=== PATIENT | male | born 1940 | race Caucasian/White ===

== ENCOUNTER 2016-07-29 07:43 | Outpatient (CLI) | payer MEDICARE, BC | END 2016-07-29 07:44 | disposition home or self-care (01) | LOC: LAB.F 07:43 | PROVIDERS: ATTEND Internal Medicine Cardiovascular Disease | DX: I48.0 Paroxysmal atrial fibrillation (principal) | CPT/HCPCS: 85610 ==

== ENCOUNTER 2016-08-31 08:33 | Outpatient (CLI) | payer MEDICARE, BC | END 2016-08-31 08:34 | disposition home or self-care (01) | LOC: LAB.F 08:33 | PROVIDERS: ATTEND Internal Medicine Cardiovascular Disease | DX: I48.0 Paroxysmal atrial fibrillation (principal) | CPT/HCPCS: 85610 ==

== ENCOUNTER 2016-09-21 09:00 | Outpatient (CLI) | payer MEDICARE, BC | END 2016-09-21 09:01 | disposition home or self-care (01) | LOC: LAB.F 09:00 | PROVIDERS: ATTEND Internal Medicine Cardiovascular Disease | DX: I48.0 Paroxysmal atrial fibrillation (principal) | CPT/HCPCS: 85610 ==

== ENCOUNTER 2016-09-28 08:17 | Outpatient (CLI) | payer MEDICARE, BC | END 2016-09-28 08:18 | disposition home or self-care (01) | LOC: LAB.F 08:17 | PROVIDERS: ATTEND Internal Medicine Cardiovascular Disease | DX: I48.0 Paroxysmal atrial fibrillation (principal) | CPT/HCPCS: 85610 ==

== ENCOUNTER 2016-10-20 09:00 | Outpatient (CLI) | payer MEDICARE, BC | END 2016-10-20 09:01 | disposition home or self-care (01) | LOC: LAB.F 09:00 | PROVIDERS: ATTEND Internal Medicine Cardiovascular Disease | DX: I48.0 Paroxysmal atrial fibrillation (principal) | CPT/HCPCS: 85610 ==

== ENCOUNTER 2016-11-20 08:41 | Outpatient (CLI) | payer MEDICARE, BC | END 2016-11-20 08:42 | disposition home or self-care (01) | LOC: LAB.F 08:41 | PROVIDERS: ATTEND Internal Medicine Cardiovascular Disease | DX: I48.0 Paroxysmal atrial fibrillation (principal) | CPT/HCPCS: 85610 ==

== ENCOUNTER 2016-12-01 07:12 | Outpatient (CLI) | payer MEDICARE, BC | END 2016-12-01 07:13 | disposition home or self-care (01) | LOC: LAB.F 07:12 | PROVIDERS: ATTEND Internal Medicine Cardiovascular Disease | DX: I48.0 Paroxysmal atrial fibrillation (principal) | CPT/HCPCS: 85610 ==

== ENCOUNTER 2017-02-22 09:26 | Outpatient (CLI) | payer MEDICARE, BC | END 2017-02-22 09:27 | disposition home or self-care (01) | LOC: LAB.F 09:26 | PROVIDERS: ATTEND Internal Medicine Cardiovascular Disease | DX: Z79.01 Long term (current) use of anticoagulants (principal) | CPT/HCPCS: 85610 ==

== ENCOUNTER 2017-03-10 10:00 | Outpatient (CLI) | payer MEDICARE, BC | END 2017-03-10 10:01 | disposition home or self-care (01) | LOC: LAB.F 10:00 | PROVIDERS: ATTEND Internal Medicine Cardiovascular Disease | DX: I48.0 Paroxysmal atrial fibrillation (principal); Z79.01 Long term (current) use of anticoagulants | CPT/HCPCS: 85610 ==

== ENCOUNTER 2017-08-04 09:26 | Outpatient (CLI) | payer MEDICARE, BC | END 2017-08-04 09:27 | disposition home or self-care (01) | LOC: LAB.F 09:26 | PROVIDERS: ATTEND Internal Medicine Cardiovascular Disease | DX: Z79.01 Long term (current) use of anticoagulants (principal) | CPT/HCPCS: 85610 ==

== ENCOUNTER 2017-08-31 11:40 | Outpatient (CLI) | payer MEDICARE, BC ==
--- NOTE | 2017-09-01 14:36 | XRAY Report ---
Procedure Date: 08/31/2017 Accession Number: [id number] / [id number] Procedure: XRS - Hip w/Pelvis 2-3V LT CPT Code: FULL RESULT: EXAM: LEFT HIP AND PELVIS RADIOGRAPHY EXAM DATE: 08/31/2017 11:51 AM. HISTORY: PAIN IN LEFT HIP. COMPARISONS: None. TECHNIQUE: 1 view of the pelvis and 1 view of the hip. FINDINGS: Bones: Mild osteopenia. No acute fracture lines. No focal abnormal osseous lesions. Joints: The bilateral hip, pubis symphysis, and sacroiliac joints are normal in alignment. Moderate left and mild right hip joint space narrowing with subchondral sclerosis and osteophytes.. Soft Tissues: Normal. No soft tissue swelling. IMPRESSION: 1. Osteopenia without evidence for acute fracture or dislocation of the pelvis or hip. 2. 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 RADIA
== END 2017-08-31 11:41 | disposition home or self-care (01) ==
LOC: DI.S 11:40
PROVIDERS: ATTEND Internal Medicine
DX: M85.89 Other specified disorders of bone density and structure, multiple sites (principal); M16.0 Bilateral primary osteoarthritis of hip

== ENCOUNTER 2017-09-07 11:09 | Outpatient (CLI) | payer MEDICARE, BC | END 2017-09-07 11:10 | disposition home or self-care (01) | LOC: LAB.F 11:09 | PROVIDERS: ATTEND Internal Medicine Cardiovascular Disease | DX: I48.0 Paroxysmal atrial fibrillation (principal) | CPT/HCPCS: 85610 ==

== ENCOUNTER 2017-10-01 08:50 | Outpatient (CLI) | payer MEDICARE, BC | END 2017-10-01 08:51 | disposition home or self-care (01) | LOC: LAB.F 08:50 | PROVIDERS: ATTEND Internal Medicine Cardiovascular Disease | DX: I48.0 Paroxysmal atrial fibrillation (principal) | CPT/HCPCS: 85610 ==

== ENCOUNTER 2017-11-01 08:19 | Outpatient (CLI) | payer MEDICARE, BC | END 2017-11-01 08:20 | disposition home or self-care (01) | LOC: LAB.F 08:19 | PROVIDERS: ATTEND Internal Medicine Cardiovascular Disease | DX: I48.0 Paroxysmal atrial fibrillation (principal) | CPT/HCPCS: 85610 ==

== ENCOUNTER 2017-11-16 09:02 | Outpatient (CLI) | payer MEDICARE, BC | END 2017-11-16 09:03 | disposition home or self-care (01) | LOC: LAB.F 09:02 | PROVIDERS: ATTEND Internal Medicine Cardiovascular Disease | DX: I48.0 Paroxysmal atrial fibrillation (principal) | CPT/HCPCS: 85610 ==

== ENCOUNTER 2018-02-17 10:15 | Outpatient (CLI) | payer MEDICARE, BC ==
[2018-02-17 17:37] LABS: INR 2.6 (0.8-1.2)
== END 2018-02-17 10:16 | disposition home or self-care (01) ==
LOC: LAB.F 10:15
PROVIDERS: ATTEND Internal Medicine Cardiovascular Disease
DX: I48.0 Paroxysmal atrial fibrillation (principal)
CPT/HCPCS: 36415; 85610

== ENCOUNTER 2018-08-09 08:14 | Outpatient (CLI) | payer MEDICARE, BC | END 2018-08-09 08:15 | disposition home or self-care (01) | LOC: LAB.F 08:14 | PROVIDERS: ATTEND Internal Medicine Cardiovascular Disease | DX: I48.0 Paroxysmal atrial fibrillation (principal) | CPT/HCPCS: 85610 ==

== ENCOUNTER 2018-09-12 08:54 | Outpatient (CLI) | payer MEDICARE, BC | END 2018-09-12 08:55 | disposition home or self-care (01) | LOC: LAB.S 08:54 | PROVIDERS: ATTEND Internal Medicine Cardiovascular Disease | DX: I48.0 Paroxysmal atrial fibrillation (principal) | CPT/HCPCS: 85610 ==

== ENCOUNTER 2018-10-13 09:49 | Outpatient (CLI) | payer MEDICARE, BC | END 2018-10-13 09:50 | disposition home or self-care (01) | LOC: LAB.S 09:49 | PROVIDERS: ATTEND Internal Medicine Cardiovascular Disease | DX: I48.0 Paroxysmal atrial fibrillation (principal) | CPT/HCPCS: 85610 ==

== ENCOUNTER 2018-11-03 09:42 | Outpatient (CLI) | payer MEDICARE, BC | END 2018-11-03 09:43 | disposition home or self-care (01) | LOC: LAB.S 09:42 | PROVIDERS: ATTEND Internal Medicine Cardiovascular Disease | DX: I48.0 Paroxysmal atrial fibrillation (principal) | CPT/HCPCS: 85610 ==

== ENCOUNTER 2018-12-01 11:17 | Outpatient (CLI) | payer MEDICARE, BC | END 2018-12-01 11:18 | disposition home or self-care (01) | LOC: LAB.S 11:17 | PROVIDERS: ATTEND Internal Medicine Cardiovascular Disease | DX: I48.0 Paroxysmal atrial fibrillation (principal) | CPT/HCPCS: 85610 ==

== ENCOUNTER 2019-08-15 10:16 | Outpatient (CLI) | payer MEDICARE, BC | END 2019-08-15 10:17 | disposition home or self-care (01) | LOC: LAB.S 10:16 | PROVIDERS: ATTEND Internal Medicine Cardiovascular Disease | DX: I48.11 Longstanding persistent atrial fibrillation (principal) | CPT/HCPCS: 85610 ==

== ENCOUNTER 2019-09-12 09:48 | Outpatient (CLI) | payer MEDICARE, BC | END 2019-09-12 09:49 | disposition home or self-care (01) | LOC: LAB.S 09:48 | PROVIDERS: ATTEND Internal Medicine Cardiovascular Disease | DX: I48.0 Paroxysmal atrial fibrillation (principal) | CPT/HCPCS: 85610 ==

== ENCOUNTER 2019-10-24 10:43 | Outpatient (CLI) | payer MEDICARE, BC | END 2019-10-24 10:44 | disposition home or self-care (01) | LOC: LAB.S 10:43 | PROVIDERS: ATTEND Internal Medicine Cardiovascular Disease | DX: I48.0 Paroxysmal atrial fibrillation (principal) | CPT/HCPCS: 85610 ==

== ENCOUNTER 2019-11-07 10:10 | Outpatient (CLI) | payer MEDICARE, BC | END 2019-11-07 10:11 | disposition home or self-care (01) | LOC: LAB.S 10:10 | PROVIDERS: ATTEND Internal Medicine Cardiovascular Disease | DX: I48.0 Paroxysmal atrial fibrillation (principal) | CPT/HCPCS: 85610 ==

== ENCOUNTER 2020-08-09 09:10 | Outpatient (CLI) | payer MEDICARE, BC | END 2020-08-09 09:11 | disposition home or self-care (01) | LOC: LAB.S 09:10 | PROVIDERS: ATTEND Internal Medicine Cardiovascular Disease | DX: I48.11 Longstanding persistent atrial fibrillation (principal) | CPT/HCPCS: 36416; 85610 ==

== ENCOUNTER 2020-09-11 11:49 | Outpatient (CLI) | payer MEDICARE, BC ==
[2020-09-11 14:39] LABS: BASOPHILS # (AUTO) 0.1 10^3/uL (0.0-0.1); BASOPHILS % (AUTO) 1.2 %; EOSINOPHILS # (AUTO) 0.6 10^3/uL (0.0-0.7); EOSINOPHILS % (AUTO) 10.6 %; HCT - HEMATOCRIT 46.2 % (42.0-52.0); HGB - HEMOGLOBIN 15.9 g/dL (14.0-18.0); LYMPHOCYTES # (AUTO) 1.1 10^3/uL (1.5-3.5); LYMPHOCYTES % (AUTO) 21.5 %; MEAN CORPUSCULAR HEMOGLOBIN 33.3 pg (27.0-31.0); MEAN CORPUSCULAR HGB CONC 34.4 g/dL (32.0-36.0); MEAN CORPUSCULAR VOLUME 96.9 fL (80.0-94.0); MEAN PLATELET VOLUME 9.8 fL (7.4-11.4); MONOCYTES # (AUTO) 0.7 10^3/uL (0.0-1.0); NEUTROPHILS # (AUTO) 2.8 10^3/uL (1.5-6.6); NEUTROPHILS % (AUTO) 53.5 %; PLT - PLATELET COUNT 211 10^3/uL (130-450); RED BLOOD COUNT 4.77 10^6/uL (4.70-6.10); RED CELL DISTRIBUTION WIDTH 12.8 % (12.0-15.0); WHITE BLOOD COUNT 5.2 x10^3/uL (4.8-10.8)
[2020-09-11 15:13] LABS: ALBUMIN/GLOBULIN RATIO 1.3 (1.0-2.2); BILIRUBIN,TOTAL 1.1 mg/dL (0.2-1.0); CALCIUM 9.1 mg/dL (8.5-10.3); CREATININE 1.2 mg/dL (0.6-1.2); POTASSIUM 4.1 mmol/L (3.5-5.0)
--- NOTE | 2020-09-11 17:33 | XRAY Report ---
PROCEDURE: Chest 2 View X-Ray INDICATIONS: COUGH TECHNIQUE: 2 view(s) of the chest. COMPARISON: None. FINDINGS: Surgical changes and devices: None. Lungs and pleura: No pleural effusions or pneumothorax. Lungs are clear. Mediastinum: Mediastinal contours are normal. Heart size is normal. Bones and chest wall: No suspicious bony abnormalities. Thoracic spine degenerative disc changes. So ft tissues appear unremarkable. IMPRESSION: No acute cardiopulmonary disease process. Reviewed by: Hannah Rivera MD, PhD on 09/11/2020 5:31 PM PDT Approved by: Hannah Rivera MD, PhD on 09/11/2020 5:31 PM PDT Station ID: [id number]
--- NOTE | 2020-09-11 17:34 | XRAY Report ---
PROCEDURE: Thoracic Spine 2 View INDICATIONS: THORACIC SPINE PX TECHNIQUE: 3 views of the thoracic spine were acquired. COMPARISON: None. FINDINGS: Bones: Loss of height noted in the T10, T9 and T7 vertebral bodies compatible with compression fractu res of indeterminate age. No suspicious bony lesions. 12 pairs of ribs are noted, and appear intact where visualized. Moderate degenerative disc changes noted throughout the thoracic spine. Soft tissues: No paravertebral stripe thickening. IMPRESSION: 1. T7, T9 and T10 compression fractures of indeterminate age. Recommend MRI of the thoracic spine for definitive characterization if clinically indicated. 2. Multilevel degenerative disc disease. Reviewed by: Hannah Rivera MD, PhD on 09/11/2020 5:33 PM PDT Approved by: Hannah Rivera MD, PhD on 09/11/2020 5:33 PM PDT Station ID: [id number]
== END 2020-09-11 11:50 | disposition home or self-care (01) ==
LOC: DI.S 11:49
PROVIDERS: ATTEND Internal Medicine
DX: M51.34 Other intervertebral disc degeneration, thoracic region (principal); M48.54XA Collapsed vertebra, not elsewhere classified, thoracic region, initial encounter for fracture; R05 Cough; I48.11 Longstanding persistent atrial fibrillation; Z79.899 Other long term (current) drug therapy
CPT/HCPCS: 36415; 80053; 85025; 85610

== ENCOUNTER 2020-10-09 08:50 | Outpatient (CLI) | payer MEDICARE, BC | END 2020-10-09 08:51 | disposition home or self-care (01) | LOC: LAB.S 08:50 | PROVIDERS: ATTEND Internal Medicine Cardiovascular Disease | DX: I48.11 Longstanding persistent atrial fibrillation (principal) | CPT/HCPCS: 36416; 85610 ==

== ENCOUNTER 2020-11-06 09:46 | Outpatient (CLI) | payer MEDICARE, BC | END 2020-11-06 09:47 | disposition home or self-care (01) | LOC: LAB.S 09:46 | PROVIDERS: ATTEND Internal Medicine Cardiovascular Disease | DX: I48.11 Longstanding persistent atrial fibrillation (principal) | CPT/HCPCS: 36416; 85610 ==

== ENCOUNTER 2020-12-09 10:19 | Outpatient (CLI) | payer MEDICARE, BC | END 2020-12-09 10:20 | disposition home or self-care (01) | LOC: LAB.S 10:19 | PROVIDERS: ATTEND Internal Medicine Cardiovascular Disease | DX: I48.11 Longstanding persistent atrial fibrillation (principal) | CPT/HCPCS: 36416; 85610 ==

== ENCOUNTER 2021-07-28 09:16 | Outpatient (CLI) | payer MEDICARE, BC | END 2021-07-28 09:17 | disposition home or self-care (01) | LOC: LAB.S 09:16 | PROVIDERS: ATTEND Internal Medicine Cardiovascular Disease | DX: I48.11 Longstanding persistent atrial fibrillation (principal) | CPT/HCPCS: 36416; 85610 ==

== ENCOUNTER 2021-09-08 14:34 | Outpatient (CLI) | payer MEDICARE, BC | END 2021-09-08 14:35 | disposition home or self-care (01) | LOC: LAB.S 14:34 | PROVIDERS: ATTEND Internal Medicine Cardiovascular Disease | DX: I48.11 Longstanding persistent atrial fibrillation (principal) | CPT/HCPCS: 36416; 85610 ==

== ENCOUNTER 2021-10-07 09:50 | Outpatient (CLI) | payer MEDICARE, BC | END 2021-10-07 09:51 | disposition home or self-care (01) | LOC: LAB.S 09:50 | PROVIDERS: ATTEND Internal Medicine Cardiovascular Disease | DX: I48.11 Longstanding persistent atrial fibrillation (principal) | CPT/HCPCS: 36416; 85610 ==

== ENCOUNTER 2021-12-11 11:35 | Outpatient (CLI) | payer MEDICARE, BC | END 2021-12-11 11:36 | disposition home or self-care (01) | LOC: LAB.S 11:35 | PROVIDERS: ATTEND Internal Medicine Cardiovascular Disease | DX: I48.11 Longstanding persistent atrial fibrillation (principal) | CPT/HCPCS: 36416; 85610 ==

== ENCOUNTER 2021-12-18 10:20 | Outpatient (CLI) | payer MEDICARE, BC | END 2021-12-18 10:21 | disposition home or self-care (01) | LOC: LAB.S 10:20 | PROVIDERS: ATTEND Internal Medicine Cardiovascular Disease | DX: I48.11 Longstanding persistent atrial fibrillation (principal) | CPT/HCPCS: 36416; 85610 ==

== ENCOUNTER 2022-07-21 08:55 | Outpatient (CLI) | payer MEDICARE, BC | END 2022-07-21 08:56 | disposition home or self-care (01) | LOC: LAB.S 08:55 | PROVIDERS: ATTEND Internal Medicine Cardiovascular Disease | DX: Z79.01 Long term (current) use of anticoagulants (principal); I48.11 Longstanding persistent atrial fibrillation | CPT/HCPCS: 36416; 85610 ==

== ENCOUNTER 2022-09-01 08:59 | Outpatient (CLI) | payer MEDICARE, BC | END 2022-09-01 09:00 | disposition home or self-care (01) | LOC: LAB.S 08:59 | PROVIDERS: ATTEND Internal Medicine Cardiovascular Disease | DX: I48.11 Longstanding persistent atrial fibrillation (principal) | CPT/HCPCS: 36416; 85610 ==

== ENCOUNTER 2022-10-06 10:52 | Outpatient (CLI) | payer MEDICARE, BC | END 2022-10-06 10:53 | disposition home or self-care (01) | LOC: LAB.S 10:52 | PROVIDERS: ATTEND Internal Medicine Cardiovascular Disease | DX: I48.11 Longstanding persistent atrial fibrillation (principal) | CPT/HCPCS: 36416; 85610 ==

== ENCOUNTER 2022-10-19 09:52 | Outpatient (CLI) | payer MEDICARE, BC | END 2022-10-19 09:53 | disposition home or self-care (01) | LOC: LAB.S 09:52 | PROVIDERS: ATTEND Internal Medicine Cardiovascular Disease | DX: I48.11 Longstanding persistent atrial fibrillation (principal) | CPT/HCPCS: 36416; 85610 ==

== ENCOUNTER 2022-11-19 10:04 | Outpatient (CLI) | payer MEDICARE, BC | END 2022-11-19 10:05 | disposition home or self-care (01) | LOC: LAB.S 10:04 | PROVIDERS: ATTEND Internal Medicine Cardiovascular Disease | DX: I48.11 Longstanding persistent atrial fibrillation (principal) | CPT/HCPCS: 36416; 85610 ==

== ENCOUNTER 2023-07-09 10:42 | Outpatient (CLI) | payer MEDICARE, BC | END 2023-07-09 23:59 | disposition critical access hospital (66) | LOC: EMS 10:42 | DX: R47.89 Other speech disturbances (principal); R41.0 Disorientation, unspecified; R41.89 Other symptoms and signs involving cognitive functions and awareness | CPT/HCPCS: A0425; A0429 ==

== ENCOUNTER 2023-07-09 11:08 | Observation (INO) | payer MEDICARE, BC ==
[2023-07-09] MEDS ORDERED: iohexoL-300 100 ML VIAL ONE (11:19)
[2023-07-09 11:33] LABS: BASOPHILS # (AUTO) 0.1 10^3/uL (0.0-0.1); BASOPHILS % (AUTO) 0.8 %; EOSINOPHILS # (AUTO) 0.4 10^3/uL (0.0-0.7); EOSINOPHILS % (AUTO) 6.1 %; HCT - HEMATOCRIT 44.6 % (42.0-52.0); HGB - HEMOGLOBIN 14.9 g/dL (14.0-18.0); LYMPHOCYTES # (AUTO) 1.3 10^3/uL (1.5-3.5); MEAN CORPUSCULAR HEMOGLOBIN 31.8 pg (27.0-31.0); MEAN CORPUSCULAR HGB CONC 33.4 g/dL (32.0-36.0); MEAN CORPUSCULAR VOLUME 95.1 fL (80.0-94.0); MEAN PLATELET VOLUME 9.2 fL (7.4-11.4); MONOCYTES # (AUTO) 0.9 10^3/uL (0.0-1.0); MONOCYTES % (AUTO) 13.3 %; NEUTROPHILS # (AUTO) 3.8 10^3/uL (1.5-6.6); NEUTROPHILS % (AUTO) 59.6 %; PLT - PLATELET COUNT 198 10^3/uL (130-450); RED BLOOD COUNT 4.69 10^6/uL (4.70-6.10); RED CELL DISTRIBUTION WIDTH 12.7 % (12.0-15.0); WHITE BLOOD COUNT 6.4 x10^3/uL (4.8-10.8)
[2023-07-09 11:43] LABS: INR 3.1 (0.8-1.2); PT - PROTHROMBIN TIME 32.3 secs (9.9-12.6)
[2023-07-09 11:49] LABS: ALBUMIN 3.5 g/dL (3.2-5.5); ALBUMIN/GLOBULIN RATIO 1.4 (1.0-2.2); CALCIUM 9.1 mg/dL (8.5-10.3); CREATININE 1.3 mg/dL (0.6-1.3); POTASSIUM 3.6 mmol/L (3.5-4.5)
--- NOTE | 2023-07-09 11:49 | CT Report ---
PROCEDURE: Head W/O Stroke Protocol INDICATIONS: confused/garbled speech; onset 09 TECHNIQUE: Helical axial CT of the brain was obtained without contrast and reformatted in multiple p lanes. COMPLIANCE STATEMENTS: Radiation dose reduction was achieved using automated exposure control or adj ustment of mA and/or kV according to patient size. This study fulfills neurological imaging criteria for inclusion or exclusion of acute stroke therapies based on available published neurological imagi ng guidelines. COMPARISON: None. FINDINGS: CSF spaces: Ventricles are appropriate in size and position. No hydrocephalus. Basal cisterns unre markable. Brain: No midline shift. No intracranial masses or hemorrhage. Roper-white matter interface is norm al. Atrophy and white matter chronic ischemic change Skull and face: Calvarium and skull base are unremarkable without suspicious lesion. Sinuses: Visualized sinuses and mastoids are clear. IMPRESSION: Atrophy and white matter chronic ischemic change without acute hemorrhage or mass effect Note: Critical results were discussed with Dr. Calabrese on 07/09/2023 at 10:46 AM [place] time. Reviewed by: Abdifatah Mendez MD on 07/09/2023 10:48 AM AKDT Approved by: Abdifatah Mendez MD on 07/09/2023 10:48 AM AKDT Station ID: [id number]
--- NOTE | 2023-07-09 11:57 | CT Report ---
PROCEDURE: CT angiogram head and neck with contrast INDICATIONS: confused/garbled speech; onset 0930 TECHNIQUE: Helical axial CT of the head and neck was obtained during the arterial phase of a intrave nous contrast injection utilizing an angiographic protocol. Multiplanar traditional and MIP reformat s were also obtained. Dose reduction techniques included either automated exposure control or adjustm ent of exposure parameters. COMPARISON: None. FINDINGS: Cerebral CT Angiogram: Internal carotid arteries: No acute findings. Trace cavernous segment atherosclerotic calcification. ICA are patent with no significant stenosis. No occlusion. No aneurysm. Anterior cerebral arteries: Unremarkable. No significant stenosis. No occlusion. No aneurysm. Middle cerebral arteries: Unremarkable. No significant stenosis. No occlusion. No aneurysm. Posterior cerebral arteries: Unremarkable. No significant stenosis. No occlusion. No aneurysm. Basilar artery: Unremarkable. No significant stenosis. No occlusion. No aneurysm. Vertebral arteries: Unremarkable as visualized. Dural venous sinuses: Unremarkable given phase of enhancement. Other: Arterial phase appearance of the brain parenchyma is unremarkable. Neck CT Angiogram: Internal carotid arteries: Trace atherosclerotic calcification the right without stenosis.. No signi ficant stenosis. No dissection or occlusion. Common carotid arteries: Unremarkable. No significant stenosis. No dissection or occlusion. External carotid arteries: Unremarkable. No occlusion. Vertebral arteries: Unremarkable. No significant stenosis. No dissection or occlusion. Aortic Arch and Mediastinum: Partially visualized aortic arch unremarkable without evidence of aneury sm. Origins of the great vessels unremarkable. Other: Arterial phase soft tissues of the neck are unremarkable. Incidental 3 mm nodule left lung ap ex. Degenerative disc disease and arthropathy in the cervical spine IMPRESSION: Trace atherosclerotic vascular calcification without significant stenosis, large vessel occlusion or aneurysm. Reviewed by: Abdifatah Mendez MD on 07/09/2023 10:56 AM JOSE M Approved by: Abdifatah Mendez MD on 07/09/2023 10:56 AM AKKEERTHI Station ID: [id number]
[2023-07-09 12:34] LABS: BILIRUBIN,URINE NEGATIVE (NEGATIVE); GLUCOSE, URINE (UA) NEGATIVE (NEGATIVE); KETONES,URINE (UA) TRACE mg/dL (NEGATIVE); LEUKOCYTE ESTERASE, URINE NEGATIVE (NEGATIVE); NITRITE,URINE NEGATIVE (NEGATIVE); OCCULT BLOOD,URINE MODERATE (NEGATIVE); PH,URINE 6.5 PH (5.0-7.5); PROTEIN,URINE NEGATIVE (NEGATIVE); UROBILINOGEN,URINE 0.2 (NORMAL) E.U./dL (NORMAL)
[2023-07-09 12:48] LABS: CLARITY,URINE CLEAR (CLEAR)
[2023-07-09 13:07] LABS: SQUAMOUS EPITHELIAL CELL,UR FEW Squamous (<= Few); WBC,URINE 0-3 /HPF (0-3)
[2023-07-09 13:08] LABS: BACTERIA,URINE Few /HPF (None Seen); CASTS, URINE 3-5 Hyaline Casts /LPF; MUCUS,URINE Few Strands
--- NOTE | 2023-07-09 13:08 | ED Physician Documentation ---
PD HPI FOCAL NEURO - Stated complaint Stated Complaint: CODE STROKE - Chief complaint Chief Complaint: Neuro - History obtained from History obtained from: Patient - Additional information Additional information: Patient is an 82-year-old male with a history of A-fib on Coumadin presenting for evaluation of confusion, abnormal speech and difficulty following commands noted by his starting at 930 this morning. Patient was up at 7:00 and was acting his usual self. At 930 is talking with the patient when he started having confusion, difficulties answering questions and had abnormal speech. She took him to the [facility] and he was evaluated by Dr. Casey diaz who felt his symptoms were concerning for stroke and called EMS. Patient had a similar episode 2 weeks ago when they were in [place]. They did not seek medical attention at that time. Patient has not recently been ill. Review of Systems Constitutional: denies: Fever Cardiac: denies: Chest pain / pressure Respiratory: denies: Dyspnea Neurologic: denies: Headache PD PAST MEDICAL HISTORY - Past Medical History Past Medical History: Yes Cardiovascular: Atrial fibrillation Neuro: TIA - Past Surgical History Past Surgical History: Yes - Present Medications Home Medications: Ambulatory Orders Medication Instructions Recorded Confirmed Finasteride [Proscar] 5 mg PO QPM 07/09/23 07/09/23 Metoprolol Succinate [Toprol Xl] 25 mg PO QPM 07/09/23 07/09/23 Tamsulosin [Flomax] 0.4 mg PO QPM 07/09/23 07/09/23 Warfarin [Coumadin] 2.5 mg PO MOWEFR 07/09/23 07/09/23 Warfarin [Coumadin] 5 mg PO SUTUTHSA 07/09/23 07/09/23 - Allergies Allergies/Adverse Reactions: Allergies Allergy/AdvReac Type Severity Reaction Status Date / Time No Known Drug Allergies Allergy Verified 07/09/23 11:27 - Social History Does the pt smoke?: No Smoking Status: Never smoker Does the pt drink ETOH?: No Does the pt have substance abuse?: No - Immunizations Immunizations are current?: Yes PD ED PE NORMAL - General General: No acute distress, Well developed/nourished. No: Alert and oriented X 3 (Alert and oriented to person and place) - HEENT HEENT: Atraumatic, PERRL, EOMI, Moist mucous membranes, Pharynx benign - Neck Neck: Supple, no meningeal sign - Cardiac Cardiac: Strong equal pulses, Other (Irregularly irregular, normal rate) - Respiratory Respiratory: No respiratory distress, Clear bilaterally - Abdomen Abdomen: Soft, Non tender - Derm Derm: Warm and dry - Neuro Neuro: manager storage 2-12 intact, No motor deficit, No sensory deficit. No: Alert and oriented X 3 (Alert and oriented to person and place), Normal speech NIHSS - Level of Consciousness Level of consciousness: (0) Alert, Keenly responsive LOC Questions: (1) Answers one Q correctly LOC Commands: (0) Performs both correctly - Gaze Best Gaze: (0) Normal - Visual Visual: (0) No loss - Facial Palsy Facial Palsy: (0) Normal, symmetrical movement - Motor Arms (both separate) Motor Arm (right): (0) No drift Motor Arm (left): (0) No drift - Motor Legs (both separate) Motor Leg (right): (0) No drift Motor Leg (left): (0) No drift - Limb Ataxia Limb Ataxia: (0) Absent - Sensory Sensory: (0) Normal - Best Language Best Language: (1) [id number] - Dysarthria Dysarthria: (0) Normal - Extinction and Inattention (formally neg Extinction and inattention: (0) No abnormality - Total Score/Results Total Score/Result: 2 Results - Vitals Vitals: Vital Signs - 24 hr 07/09/23 07/09/23 07/09/23 11:28 11:32 12:02 Temperature 36.6 C 36.6 C 36.6 C Heart Rate 65 65 66 Respiratory 16 16 18 Rate Blood Pressure 184/82 H 184/82 H 166/83 H O2 Saturation 100 100 100 07/09/23 07/09/23 07/09/23 12:30 13:00 14:30 Temperature 36.5 C Heart Rate 55 L 65 61 Respiratory 12 12 19 Rate Blood Pressure 178/105 H 174/84 H 159/116 H O2 Saturation 98 100 100 Oxygen O2 Source Room air - EKG (time done) 1156 EKG releavant findings:: EKG personally interpreted by author of this note. Relevant findings are: Rate 59, atrial fibrillation, right bundle branch block, no STEMI - Labs Labs: Laboratory Tests 07/09/23 07/09/23 07/09/23 11:27 11:27 11:27 WBC 6.4 RBC 4.69 L Hgb 14.9 Hct 44.6 MCV 95.1 H MCH 31.8 H MCHC 33.4 RDW 12.7 Plt Count 198 MPV 9.2 Neut # (Auto) 3.8 Lymph # (Auto) 1.3 L [place] # (Auto) 0.9 Eos # (Auto) 0.4 Baso # (Auto) 0.1 Absolute Nucleated RBC 0.00 Nucleated RBC % 0.0 PT 32.3 H INR (Fingerstick) INR 3.1 H Sodium 135 Potassium 3.6 Chloride 107 Carbon Dioxide 23 Anion Gap 5.0 L BUN 17 Creatinine 1.3 Estimated GFR (MDRD) 53 L Glucose 102 Calcium 9.1 Total Bilirubin 1.0 AST 16 ALT 9 L Alkaline Phosphatase 55 Total Protein 6.0 L Albumin 3.5 Globulin 2.5 Albumin/Globulin Ratio 1.4 Lipase 18 Urine Color Urine Clarity Urine pH Ur Specific [place] Urine Protein Urine Glucose (UA) Urine Ketones Urine Occult Blood Urine Nitrite Urine Bilirubin Urine Urobilinogen Ur Leukocyte Esterase Urine RBC Urine WBC Ur Squamous Epith Cells Urine Bacteria Urine Casts Urine Mucus Ur Microscopic Review Urine Culture Comments 07/09/23 07/09/23 11:31 12:11 WBC RBC Hgb Hct MCV MCH MCHC RDW Plt Count MPV Neut # (Auto) Lymph # (Auto) [place] # (Auto) Eos # (Auto) Baso # (Auto) Absolute Nucleated RBC Nucleated RBC % PT INR (Fingerstick) 2.8 H INR Sodium Potassium Chloride Carbon Dioxide Anion Gap BUN Creatinine Estimated GFR (MDRD) Glucose Calcium Total Bilirubin AST ALT Alkaline Phosphatase Total Protein Albumin Globulin Albumin/Globulin Ratio Lipase Urine Color YELLOW Urine Clarity CLEAR Urine pH 6.5 Ur Specific [place] 1.010 Urine Protein NEGATIVE Urine Glucose (UA) NEGATIVE Urine Ketones TRACE Urine Occult Blood MODERATE H Urine Nitrite NEGATIVE Urine Bilirubin NEGATIVE Urine Urobilinogen 0.2 (NORMAL) Ur Leukocyte Esterase NEGATIVE Urine RBC 6-10 H Urine WBC 0-3 Ur Squamous Epith Cells FEW Squamous Urine Bacteria Few Urine Casts 3-5 Hyaline Casts Urine Mucus Few Strands Ur Microscopic Review INDICATED Urine Culture Comments NOT INDICATED PD Medical Decision Making - ED course Complexity details: reviewed results, re-evaluated patient, d/w patient, d/w family ED course: Patient is an 82-year-old male presenting for evaluation of abnormal speech, difficulty with following commands and confusion starting this morning. Had a recent episode 2 weeks ago. Is on warfarin for history of A-fib. On arrival has an NIH of 3. Evaluated as a code stroke. Telestroke was consulted. CT head is negative for bleed and CT angio head and neck is negative for large vessel occlusion. Patient's INR is too high for consideration of tenecteplase. Teleneurology recommends that we admit for further stroke evaluation if symptoms or not quickly improving. He is aware that we do not have MRI capabilities this weekend. He states that if symptoms are better in 24 hours then could consider this possibly is another TIA and would recommend outpatient MRI and echo in the next week. Allow for permissive hypertension for the time being and would hold on aspirin at given INR.If symptoms persist then would recommend MRI while hospitalized. Discussed with admitting hospitalist who will see the patient for further management. Departure - Departure Disposition: ED Place in Observation Clinical Impression: Stroke-like symptom, Hypertension, Chronic atrial fibrillation, Anticoagulant long-term use Condition: Stable Discharge Date/Time: 07/09/23 16:31
[2023-07-09] MEDS ORDERED: ACETAMINOPHEN 325 MG TABLET PO PRN (14:28)
[2023-07-09] MEDS ORDERED: LABETALOL 20 MG/4 ML SYRINGE IVP PRN (14:28)
[2023-07-09] MEDS ORDERED: SODIUM CHLORIDE FLUSH 0.9% 10 ML SYRINGE IVP PRN (14:33)
[2023-07-09] MEDS ORDERED: ONDANSETRON 4 MG/2 ML VIAL IVP PRN (14:33)
--- NOTE | 2023-07-09 15:53 | HISTORY & PHYSICAL EXAMINATION ---
Chief Complaint - Chief Complaint Chief Complaint: Speech problem History of Present Illness - Admitted From Admitted From:: Home - History Obtained From History obtained from: The pt and his - History of Present Illness HPI Comment/Other: This is an 82 yo M with history of A fib on coumadin, hypercholesterolemia and BPH came with speech problem. The pt and his stay at [place] for 6 months per year and they stay in [place] for 6 months. When he was in [place] 3 weeks ago he had speech problem and he had trouble with remembering things. His symptoms resolved in 24-36 hrs so they didn't seek medical attention. This morning at 9:30 am he was sitting on chair talking to his . He suddenly developed speech problem and he was mumbling. The pt didn't have any unilateral weakness or any other symptoms. His says " Word Salad". Due to this symptoms, he was brought into ED. ED course: Vital signs showed HR 55, BP up to 184/82. Work up revealed INR 2.8, 3-5 hyaline cats on UA and negative CTA head and neck and CT head w/o contrast. Tele stroke team was called and observing the pt for 24hrs has been recommended. History - Past Medical History Cardiovascular: reports: High cholesterol, Atrial fibrillation Neuro: reports: TIA : reports: Benign prostate hypertrophy MRSA Hx?: No - Family & Social History Family History: Mother: Cancer (Breast) Living arrangement: At home Living Situation: With spouse/s.o. - Substance History Use: Uses substance without health or social issues: Tobacco (Former smoker), Alcohol (2 beers per day) - POLST Patient has POLST: No POLST Status: Full Code Meds/Allgy - Home Medications Home Medications: Ambulatory Orders Medication Instructions Recorded Confirmed Finasteride [Proscar] 5 mg PO DAILY 07/09/23 Metoprolol Succinate [Toprol Xl] 25 mg PO DAILY 07/09/23 Tamsulosin [Flomax] 0.4 mg PO DAILY 07/09/23 Warfarin [Coumadin] 5 mg PO 07/09/23 - Allergies Allergies/Adverse Reactions: Allergies Allergy/AdvReac Type Severity Reaction Status Date / Time No Known Drug Allergies Allergy Verified 07/09/23 11:27 Review of Systems - Neurological Neurological: reports: Slurred speech - All Other Systems All Other Systems: reports: Reviewed and negative Prior Level of Functionality: Independent. Using Cane for ambulation Exam - Vital Signs Reviewed Vital Signs: Yes Vital Signs: Vital Signs x48h Temp Pulse Resp BP Pulse Ox 07/09/23 14:30 61 19 159/116 H 100 07/09/23 13:00 36.5 C 65 12 174/84 H 100 07/09/23 12:30 55 L 12 178/105 H 98 07/09/23 12:02 36.6 C 66 18 166/83 H 100 07/09/23 11:32 36.6 C 65 16 184/82 H 100 07/09/23 11:28 36.6 C 65 16 184/82 H 100 - Physical Exam General Appearance: positive: No acute distress Eyes Bilateral: positive: Normal inspection, PERRL, EOMI ENT: positive: No signs of dehydration Neck: positive: Nml inspection, No JVD Respiratory: positive: Chest non-tender, No respiratory distress, Breath sounds nml Cardiovascular: positive: Irregularly irregular, Bradycardia Abdomen: positive: Non-tender, Nml bowel sounds, No distention Skin: positive: Color nml, No rash, Warm, Dry Extremities: positive: Non-tender, Full ROM Neurologic/Psychiatric: positive: Oriented x3, Motor nml, Sensation nml, Mood/affect nml, Slurred/abnml speech (Mildly slurred speech which is improvement from earlier today) Conclusion/Plan - Problem List (1) Stroke-like symptom Conclusion/Plan: Slurred speech has been improving. Stroke team thinks he can go home if he improves overnight. MRI as an outpt. Echo. Permissive HTN. Check lipid panel and HgbA1c. Swallow screen. PT/OT eval. Continue with coumadin per stroke team. Lipitor. (2) Chronic atrial fibrillation Conclusion/Plan: Rate controlled. Continue with coumadin. (3) Hypertension Conclusion/Plan: Permissive HTN for stroke symptoms. - Lab Results Lab results reviewed: Yes Fish Bones: 07/09/23 11:27 07/09/23 11:27 - Diagnostic Imaging Results Diagnostic Imaging Results: positive: Final report reviewed - EKG Results EKG Interpreted Independently: Yes EKG Comparison: Old EKG unavailable EKG Findings: A fib with slow ventricular rate, RBBB Core Measures - Anticipated LOS I expect patient to be DC'd or transferred within 96 hours.: Yes - Issues Hospital Issues and Management Plan: Monitor stroke symptoms. - DVT/VTE - Prophylaxis VTE/DVT Device ordered at admit?: Yes VTE/DVT Prophylaxis med ordered at admit?: Yes - Stroke - Rehab Assessment Rehab services assessment to be ordered?: Yes
--- NOTE | 2023-07-09 17:17 | PHARMACY PROGRESS NOTE ---
- Best Possible Medication History Admit Date and Time: 07/09/23 1448 Processed by: Pharmacy Medications reviewed in ED?: Yes Patient Interview: Completed Secondary Source(s): Prescription bottles, Spouse/Significant other, Pharmacy records, Insurance records As the person ultimately responsible for medication therapy, providers are able to order a medication from an existing home medication list in [facility] via the "Reconcile Routine" prior to Confirmation of that medication by lead performance support analyst. Such practice is discouraged except when the physician, in their clinical judgment, deems that a medical need exists for a medication without regard to previous use.
[2023-07-09] MEDS: ATORVASTATIN 40 MG TABLET PO SCH (20:11)
[2023-07-09] MEDS: FINASTERIDE 5 MG TABLET PO SCH (20:11)
[2023-07-09] MEDS: TAMSULOSIN 0.4 MG CAPSULE PO SCH (20:11)
[2023-07-09] MEDS: SODIUM CHLORIDE FLUSH 0.9% 10 ML SYRINGE IVP SCH (20:11)
[2023-07-10 06:34] LABS: BASOPHILS # (AUTO) 0.1 10^3/uL (0.0-0.1); BASOPHILS % (AUTO) 1.1 %; EOSINOPHILS # (AUTO) 0.5 10^3/uL (0.0-0.7); EOSINOPHILS % (AUTO) 8.2 %; HCT - HEMATOCRIT 47.3 % (42.0-52.0); HGB - HEMOGLOBIN 15.9 g/dL (14.0-18.0); LYMPHOCYTES # (AUTO) 1.3 10^3/uL (1.5-3.5); LYMPHOCYTES % (AUTO) 20.7 %; MEAN CORPUSCULAR HEMOGLOBIN 31.9 pg (27.0-31.0); MEAN CORPUSCULAR HGB CONC 33.6 g/dL (32.0-36.0); MEAN PLATELET VOLUME 9.2 fL (7.4-11.4); MONOCYTES # (AUTO) 0.8 10^3/uL (0.0-1.0); MONOCYTES % (AUTO) 12.8 %; NEUTROPHILS # (AUTO) 3.7 10^3/uL (1.5-6.6); PLT - PLATELET COUNT 189 10^3/uL (130-450); RED BLOOD COUNT 4.98 10^6/uL (4.70-6.10); RED CELL DISTRIBUTION WIDTH 12.7 % (12.0-15.0); WHITE BLOOD COUNT 6.4 x10^3/uL (4.8-10.8)
[2023-07-10 06:48] LABS: ALBUMIN 3.7 g/dL (3.2-5.5); ALBUMIN/GLOBULIN RATIO 1.4 (1.0-2.2); ALKALINE PHOSPHATASE 51 IU/L (42-121); ALT ALANINE AMINOTRANSFERASE 10 IU/L (10-60); AST ASPARTATE AMINOTRANSFERASE 18 IU/L (10-42); BILIRUBIN,TOTAL 1.2 mg/dL (0.2-1.0); BUN - BLOOD UREA NITROGEN 16 mg/dL (6-20); CALCIUM 9.1 mg/dL (8.5-10.3); CARBON DIOXIDE - CO2 19 mmol/L (21-32); CHLORIDE 108 mmol/L (101-111); CHOL/HDL RATIO 3.2 (<5.0); CHOLESTEROL 142 mg/dL; CREATININE 1.2 mg/dL (0.6-1.3); GFR - MDRD 58 (>89); GLUCOSE 84 mg/dL (74-104); HDL CHOLESTEROL 44 mg/dL; LDL CHOLESTEROL,CALCULATED 85 mg/dL; LDL/HDL RATIO 1.9 (<3.6); POTASSIUM 3.9 mmol/L (3.5-4.5); SODIUM 136 mmol/L (135-145); TOTAL PROTEIN 6.3 g/dL (6.4-8.9); TRIGLYCERIDES 63 mg/dL (48-352); VLDL CHOLESTEROL 13 mg/dL
[2023-07-10 06:53] LABS: INR 2.7 (0.8-1.2); PT - PROTHROMBIN TIME 27.7 secs (9.9-12.6)
--- NOTE | 2023-07-10 07:46 | Discharge Plan ---
Discharge Plan Problem Reviewed?: Yes Disposition: Home, Self Care Condition: Stable Prescriptions: Atorvastatin [Lipitor] 20 mg PO QPM #30 tablet Diet: Cardiac Activity Restrictions: Activity as Tolerated Shower Restrictions: No Driving Restrictions: No Assistance Devices: Cane Weight Bearing: Full Weight Additional Instructions or Follow Up instructions: Needs to go to urgent care for the order for MRI and the results of Echo. No Smoking: If you smoke, Please STOP! Call for help.
[2023-07-10 07:47] VITALS: BP 160/105; O2SAT 99
--- NOTE | 2023-07-10 07:50 | DISCHARGE SUMMARY ---
Discharge Summary Admit Date: 07/09/23 Discharge Date: 07/10/23 Discharging Provider: Truman Das Primary Care Provider: No PCP Code Status: Attempt Resuscitation Condition at Discharge: Stable - DIAGNOSES Admission Diagnoses: Stroke like symptoms Discharge Diagnoses with Status of Each Condition: Stroke like symptoms: Improved. - HPI History of Present Illness: Per my H&P, This is an 82 yo M with history of A fib on coumadin, hypercholesterolemia and BPH came with speech problem. The pt and his stay at [place] for 6 months per year and they stay in [place] for 6 months. When he was in [place] 3 weeks ago he had speech problem and he had trouble with remembering things. His symptoms resolved in 24-36 hrs so they didn't seek medical attention. This morning at 9:30 am he was sitting on chair talking to his . He suddenly developed speech problem and he was mumbling. The pt didn't have any unilateral weakness or any other symptoms. His says " Word Salad". Due to this symptoms, he was brought into ED. ED course: Vital signs showed HR 55, BP up to 184/82. Work up revealed INR 2.8, 3-5 hyaline cats on UA and negative CTA head and neck and CT head w/o contrast. Tele stroke team was called and observing the pt for 24hrs has been recommended. - CONSULTS | PROCEDURES Consultations: Tele Stroke team by ER physician - HOSPITAL COURSE Hospital Course: Upon admission he was put on atorvastatin 80mg daily, tele and neuro check. The pt passed swallow screen and the pt's activity level is at his baseline. His slurred speech improved since he came to ED. Echo was done but the results are pending. The pt needs outpt MRI and he needs to go to urgent care for the order since he doesn't have PCP. Tele stroke team recommended continuing coumadin unless he develops symptoms again so he will continue with coumadin at this time. - ALLERGIES Allergies/Adverse Reactions: Allergies Allergy/AdvReac Type Severity Reaction Status Date / Time No Known Drug Allergies Allergy Verified 07/09/23 11:27 - MEDICATIONS Home Medications: Ambulatory Orders Medication Instructions Recorded Confirmed Finasteride [Proscar] 5 mg PO QPM 07/09/23 07/09/23 Metoprolol Succinate [Toprol Xl] 25 mg PO QPM 07/09/23 07/09/23 Tamsulosin [Flomax] 0.4 mg PO QPM 07/09/23 07/09/23 Warfarin [Coumadin] 2.5 mg PO MOWEFR 07/09/23 07/09/23 Warfarin [Coumadin] 5 mg PO SUTUTHSA 07/09/23 07/09/23 Atorvastatin [Lipitor] 20 mg PO QPM #30 tablet 07/10/23 - PHYSICAL EXAM AT DISCHARGE General Appearance: positive: No acute distress Eyes Bilateral: positive: Normal inspection, EOMI Neck: positive: Nml inspection, No JVD Respiratory: positive: No respiratory distress Cardiovascular: positive: Irregularly irregular Abdomen: positive: Non-tender, Nml bowel sounds, No distention Neurologic/Psychiatric: positive: Oriented x3 - LABS Result Diagrams: 07/10/23 06:24 07/10/23 06:09 - DIAGNOSTIC IMAGING Diagnostic Imaging Results: Final report reviewed Diagnostic Imaging Results Comments: Negative CTA head and neck and CT head w/o contrast. Echo results are pending. Needs MRI as an outpt. - FOLLOW UP Follow Up: Follow up with urgent care for the order for MRI and echo results. Will need to establish with PCP. - TIME SPENT Time Spent in Discharge (Minutes): 40
[2023-07-10 10:37] LABS: ESTIMATED AVERAGE GLUCOSE 108 mg/dL (70-100); HEMOGLOBIN A1c% 5.4 % (4.27-6.07)
== END 2023-07-10 09:40 | disposition home or self-care (01) ==
LOC: EDUNIT# → ED 11:08 → MS2 14:48
PROVIDERS: ADMIT Internal Medicine; ATTEND Internal Medicine
DX: R47.81 Slurred speech (principal); I48.20 Chronic atrial fibrillation, unspecified; E78.00 Pure hypercholesterolemia, unspecified; N40.0 Benign prostatic hyperplasia without lower urinary tract symptoms; I10 Essential (primary) hypertension; I45.10 Unspecified right bundle-branch block; Z79.01 Long term (current) use of anticoagulants; Z79.899 Other long term (current) drug therapy; Z86.73 Personal history of transient ischemic attack (TIA), and cerebral infarction without residual deficits; Z87.891 Personal history of nicotine dependence
CPT/HCPCS: 36415; 70450; 70496; 70498; 80053; 80061; 81001; 83036; 83690; 85025; 85610; 93005; 93307; 97166; 99285; A9270; G0378; Q9967; 81003; 83721; 87086

== ENCOUNTER 2023-07-19 10:48 | Outpatient (CLI) | payer MEDICARE, BC | END 2023-07-19 10:49 | disposition home or self-care (01) | LOC: LAB.S 10:48 | PROVIDERS: ATTEND Internal Medicine Cardiovascular Disease | DX: I48.11 Longstanding persistent atrial fibrillation (principal) | CPT/HCPCS: 36416; 85610 ==

== ENCOUNTER 2023-07-26 09:12 | Outpatient (CLI) | payer MEDICARE, BC ==
--- NOTE | 2023-07-26 17:53 | MRI Report ---
PROCEDURE: Brain WO INDICATIONS: TRANSIENT ISCHEMIC ATTACK TECHNIQUE: Noncontrast axial T1 spin echo, axial T2 fast spin echo, sagittal and axial FLAIR, coronal T2 fast sp in echo, axial gradient echo, axial diffusion and ADC through the brain. COMPARISON: Correlation is made with prior head CT, 07/09/2023 FINDINGS: Image quality: Excellent. CSF Spaces: Basal cisterns are patent. No extra-axial fluid collections. Ventricles are normal in size and shape. Brain: No intracranial masses or hemorrhage. Roper/white matter interface is normal. Brainstem appe ars normal. Diffusion-weighted images demonstrate no acute ischemic insult. No chronic ischemic ins ults. Normal intravascular flow voids are present. Age-appropriate brain parenchymal volume loss an d chronic small vessel ischemic change can be seen. Skull and face: Calvarium has normal marrow signal. Orbits appear normal. Incidental note is made of bilateral lens replacements. Sinuses: Sinuses and mastoids are clear. IMPRESSION: No findings of acute or subacute infarction are seen. No prior territorial infarction can be seen. Age-appropriate brain parenchymal volume loss and chronic small vessel ischemic change can be seen. Reviewed by: Waldemar Kramer MD on 07/26/2023 4:51 PM JOSE M Approved by: Waldemar Kramer MD on 07/26/2023 4:51 PM AKKEERTHI Station ID: [id number]
== END 2023-07-26 09:13 | disposition home or self-care (01) ==
LOC: DI 09:12
PROVIDERS: ATTEND Internal Medicine
DX: G45.9 Transient cerebral ischemic attack, unspecified (principal)

== ENCOUNTER 2023-08-16 11:25 | Outpatient (CLI) | payer MEDICARE, BC | END 2023-08-16 11:26 | disposition home or self-care (01) | LOC: LAB.S 11:25 | PROVIDERS: ATTEND Internal Medicine Cardiovascular Disease | DX: I48.11 Longstanding persistent atrial fibrillation (principal) | CPT/HCPCS: 36416; 85610 ==

== ENCOUNTER 2023-08-25 11:43 | Outpatient (CLI) | payer MEDICARE, BC | END 2023-08-25 11:44 | disposition home or self-care (01) | LOC: LAB.S 11:43 | PROVIDERS: ATTEND Internal Medicine Cardiovascular Disease | DX: I48.11 Longstanding persistent atrial fibrillation (principal) | CPT/HCPCS: 36416; 85610 ==

== ENCOUNTER 2023-09-09 09:37 | Outpatient (CLI) | payer MEDICARE, BC | END 2023-09-09 09:38 | disposition home or self-care (01) | LOC: LAB.S 09:37 | PROVIDERS: ATTEND Internal Medicine Cardiovascular Disease | DX: I48.11 Longstanding persistent atrial fibrillation (principal) | CPT/HCPCS: 36416; 85610 ==

== ENCOUNTER 2023-09-24 09:50 | Outpatient (CLI) | payer MEDICARE, BC | END 2023-09-24 09:51 | disposition home or self-care (01) | LOC: LAB.S 09:50 | PROVIDERS: ATTEND Internal Medicine Gastroenterology | DX: I48.11 Longstanding persistent atrial fibrillation (principal) | CPT/HCPCS: 36416; 85610 ==

== ENCOUNTER 2023-09-29 09:00 | Outpatient (CLI) | payer MEDICARE, BC | END 2023-09-29 09:01 | disposition home or self-care (01) | LOC: LAB.S 09:00 | PROVIDERS: ATTEND Internal Medicine Cardiovascular Disease | DX: I48.11 Longstanding persistent atrial fibrillation (principal) | CPT/HCPCS: 36416; 85610 ==

== ENCOUNTER 2023-10-20 09:03 | Outpatient (CLI) | payer MEDICARE, BC | END 2023-10-20 09:04 | disposition home or self-care (01) | LOC: LAB.S 09:03 | PROVIDERS: ATTEND Internal Medicine Cardiovascular Disease | DX: I48.11 Longstanding persistent atrial fibrillation (principal) | CPT/HCPCS: 36416; 85610 ==